=== PATIENT | male | born 1985 | race Two or more races ===

== ENCOUNTER 2020-02-22 11:30 | Emergency (ER) | payer BC ==
[2020-02-22] MEDS ORDERED: Sodium Chloride 0.9% 1,000 ML IV ONE (12:19)
[2020-02-22] MEDS ORDERED: Sodium Chloride 0.9% 10 ML Syringe FLUSH PRN (12:19)
[2020-02-22] MEDS ORDERED: Sodium Chloride 0.9% 2.5 ML Syringe FLUSH PRN (12:19)
[2020-02-22] MEDS ORDERED: Piperacillin/Tazobactam 4.5 GM in Sodium Chloride 0.9% 100 ML IV ONE ×2 (12:19→13:15)
[2020-02-22] MEDS ORDERED: Vancomycin/Water for INJ (PEG) 2 GM in Premix Bag 1 BAG IV ONE (12:45)
[2020-02-22 12:53] LABS: ACETAMINOPHEN <2.0 ug/mL; BLOOD UREA NITROGEN,BUN 51 mg/dL (7.0-18.0); CARBON DIOXIDE,CO2 20.6 mmol/L (21.0-32.0); CHLORIDE,CL 95 mmol/L (98-107); GLUCOSE RANDOM 131 mg/dL (74-106); LIPASE 80 U/L (73-393); POTASSIUM,K 3.3 mmol/L (3.5-5.1); SODIUM,NA 132 mmol/L (136-148)
[2020-02-22] MEDS ORDERED: Morphine 4 MG/ML Syringe IVPUSH ONE (13:12)
--- NOTE | 2020-02-22 13:12 | EDM.PDOC ---
ED HPI GENERAL MEDICAL PROBLEM - General Chief Complaint: General Stated Complaint: FEVER BODY ACHES STOMACH PAIN Time Seen by Provider: 02/22/20 11:55 - History of Present Illness INITIAL COMMENTS - FREE TEXT/NARRATIVE: CHIEF COMPLAINT(S): Abdominal pain HISTORY OF PRESENT ILLNESS: This is a 35-year-old man without any reported past medical history who comes to the emergency department with a chief complaint of abdominal pain. The patient states that for approximately 6 days now he has been experiencing abdominal pain which she describes as throughout his whole abdomen but worse on the right side. He denies any radiation of this pain. He rates his pain as 8 out of 10 and intermittent. He states that pressing the area causes it to worsen. He denies any exacerbation of pain with eating. He states that he has associated nausea and vomited once. He denies any hematemesis, bilious emesis, melena, hematochezia. He states that he is also been taking Tylenol and Aleve for pain and fever relief which has not helped the pain. He states that his T-max was 104.3. He states he is experiencing headache which is located bifrontal not associated with diplopia, numbness, tingling, or weakness in bilateral nasal congestion. Associated with the abdominal pain is also watery diarrhea and has had decreased urinary output. He states that he has not had any appetite and when he tries to eat he does throw up. He states that he did follow-up at his primary care office where they alea labs and was told that he was Covid negative, strep negative, flu negative but that he did have an increased white blood cell count so they started him on amoxicillin and clavulanic acid. He denies any recent travel and nobody in his family is having similar symptoms. He denies any history of hepatitis or excessive Tylenol use. 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 He states that no one else at work has the symptoms. That he knows of. Collateral information was obtained from patient's Mariluz. She states that on Saturday when the patient came home he stated that he was not feeling well. She states that at that time he had a fever of 103 and she was giving him Tylenol and ibuprofen. She states that the following day they took him to an outpatient clinic where he tested negative for Covid and had a blood draw. Approximately 4 days ago they called and told him that he had a blood infection and gave him a prescription for antibiotics. She states that approximately 2 days ago she wanted him to come to the emergency department for evaluation however he wanted to try going through the weekend. She states that he was not eating but was tolerating water and Gatorade. She states that he did have an intermittent cough, body aches, throat pain. She states that this morning when she woke up she noticed that he did not look well and told him that he needed to come to the emergency department. She states that he did does not do any illicit substances and does not drink excessive alcohol. REVIEW OF SYSTEMS: Constitutional: Positive for fever Eyes: Denies eye pain Ears, Nose, Mouth, & Throat: Positive for nasal congestion denies earache Cardiovascular: Denies chest pain Respiratory: Denies shortness of breath Gastrointestinal: Positive for right-sided abdominal pain, nausea, vomiting, diarrhea. Denies hematochezia, melena, hematemesis, bilious emesis Genitourinary: Positive for decreased urinary output. Denies hematuria Skin:Denies a rash Neurological: Positive for headache. Denies blurred vision, numbness, tingling, weakness Psychiatric: Denies depression PAST MEDICAL HISTORY: As per history of present illness and as reviewed below otherwise noncontributory. SURGICAL HISTORY: As per history of present illness and as reviewed below otherwise noncontributory. SOCIAL HISTORY: As per history of present illness and as reviewed below otherwise noncontributory. FAMILY HISTORY: As per history of present illness and as reviewed below otherwise noncontributory. EXAMINATION OF ORGAN SYSTEMS/BODY AREAS: Constitutional: Blood pressure was 92/46, heart rate 110, respiratory rate 20 with an oxygen saturation of 100% on room air. Temperature 37.2 General: Young man who does not appear to be in acute distress Psychiatric: Appropriate mood and affect. Eyes: Bilateral scleral icterus is present. No conjunctival erythema. ENMT: Dry mucous membranes. No pharyngeal erythema. Mild nasal drainage. Cardiovascular: Tachycardic but regular no gallops, murmurs, or rubs. Bilateral upper extremity pulses symmetric and intact. No peripheral edema. No JVD. Respiratory: Lungs clear to auscultation bilaterally. No wheezes, rales, or rhonchi. Gastrointestinal: Soft, diffusely tender however worse in the right upper and ri ght lower quadrant. Mild distention. Negative tympany. No rebound or guarding. Normoactive bowel sounds Genitourinary: No suprapubic tenderness Musculoskeletal: Normal range of motion. Skin: Mildly jaundiced Neurological: Alert, GCS 15 MEDICAL DECISION MAKING AND COURSE IN THE ED WITH INTERPRETATION/REVIEW OF DIAGNOSTIC STUDIES: This is a 35-year-old man without any reported past medical history who comes to the emergency department with abdominal pain on the right side of his abdomen who is hypotensive and tachycardic. He is also jaundiced with some scleral icterus. At this time differential includes cholecystitis, choledocholithiasis, ascending cholangitis versus other etiology of the liver. Will obtain a septic work-up including CBC, CMP, lactic acid, blood cultures, urine, chest x-ray, hepatitis panel, coags, and right upper quadrant ultrasound and CT abdomen pelvis with contrast. We will provide the patient with the equivalent of 30 cc/kg of normal saline. We will start the patient on Zosyn and vancomycin. Also provide the patient with morphine for pain relief. Twelve-lead EKG interpreted by myself. Sinus tachycardia at a rate of 101 beats per minute. Normal axis. SD interval is 163 ms. QRS duration is [address] segments are normal without elevations or depressions. No Q waves present. Hypertrophy not noted. No prior EKGs in our system. Interpretation: Sinus tachycardia Laboratory: CBC reveals a leukocytosis of 19 with neutrophilic predominance and segmented neutrophils. There is severe lymphopenia with 0.4 lymphocytes. Coags are within normal limits. Lactic acid was 2.8, repeat was 1.9. CMP reveals anion gap metabolic acidosis with a bicarbonate of 20.6. Hypokalemia at 3.3. Hyponatremia at 132. He has acute renal failure with a BUN of 51 and a creatinine of 4.4. He also has acute hyperbilirubinemia with a total bilirubin of 7 and a direct bilirubin of 5.3. AST is mildly elevated at 43 and alkaline phosphatase also elevated at 155. CRP is elevated greater than 20. Hypophosphatemia at 2.1 and hyperglycemia at 131. There is hypoalbuminemia with a protein of 2.2. Tylenol and alcohol levels are negative. HIV is negative. I nfluenza AB and coronavirus are negative. Urinalysis was a clean catch and was trace for leukocyte esterase, positive for nitrites, and small for blood. Interpretation: Positive The radiological images were viewed by myself along with reading the report from the radiologist. Chest x-ray does not reveal any acute cardiopulmonary process. Ultrasound of the abdomen reveals gallbladder wall thickening and mild sonographic Kraft sign but no calculus or pericholecystic fluid. There is also a gallbladder polyp and probable hepatic steatosis. CT abdomen pelvis without contrast reveals enlarged liver with evidence of steatosis. No focal mass or biliary ductal dilation. There appears to be layering of sludge within the gallbladder. No wall thickening, pericholecystic fluid or surrounding inflammatory change. Otherwise it is negative. After initial fluid resuscitation and antibiotic administration, the patient continued to remain hypotensive. Therefore I did discuss with patient I like to place a Joseph catheter and a central venous catheter in order to start pressors. We did obtain written consent. Central Line Procedure The risks and benefits of the procedure were explained. Consent was obtained and in chart. The indication for central line placement was vasopressor support. The patient was monitored during the entire procedure. Time out was performed. The patient's left neck was prepped and draped in a sterile fashion. Lidocaine was used to anesthetize the area. A needle was entered into the left internal jugular vein under ultrasound guidance with return of non-pulsatile flow. Guidewire was placed and triple lumen catheter was placed via Seldinger technique. Guidewire was removed. All 3 lines easily withdrew blood and were flushed with sterile saline. A Biopatch was placed and the line was secured. Patient tolerated procedure well. No complications. Joseph catheter was placed with approximately 10 cc of concentrated urine. Given the body aches, diarrhea, and findings we did send off a legionnaire antigen which is not yet back. I did contact [facility] in [place] and spoke with Dr. Fantasma Hay who accepted the patient for transfer. The patient will be transferred via fixed wing. While awaiting post central line chest x-ray reading the patient's blood pressure normalized. Therefore we did not start the patient on vasopressor support. The radiological images were viewed by myself along with reading the report from the radiologist. Chest x-ray reveals a left internal jugular central line that courses inferiorly along the left aspect of the mediastinum terminating over the left heart. 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 Otherwise no acute cardiopulmonary findings. At the time of transfer, hepatitis panel and Legionella urine antigen were pending. I did contact the patient's to inform her of the patient's condition at the request of the patient. Patient's 's name is Mariluz and I contacted her at [phone] DISPOSITION: The patient was transferred to [facility] and stable yet serious condition CONDITION: Serious PROCEDURES: EKG interpretation, cardiac monitoring interpretation, pulse oximetry interpretation FINAL IMPRESSION(S)/DIAGNOSES: 1. Acute sepsis secondary to cystitis versus intra-abdominal infection 2. Acute renal failure 3. Acute hyperbilirubinemia with suggestion of liver failure 4. Acute anion gap acidosis secondary to lactic acidosis 5. Acute thrombocytopenia 6. Acute hypoalbuminemia Critical Care Procedure Note Authorized and performed by: Adam Cyr M.D. Critical Care Time: 74 minutes Due to a high probability of clinically significant, life threatening deterioration, the patient required my highest level of preparedness to intervene emergently and I personally spent this critical care time directly and personally managing the patient. This critical care time included obtaining a history, examining the patient, pulse oximetry; ordering and review of studies; arranging urgent treatment with development of a management plan; evaluation of a patients response to treatment; frequent assessment; and discussions with other providers. This critical care time was performed to assess and manage the high probability of imminent, life threatening deterioration that could result in multiorgan failure. It was exclusive of separate billable procedures and treating other patients. Please see MDM section and rest of the note for further information on patient assessment and treatment. Please see MDM section and rest of the note for further information on patient assessment and treatment. Adam Cyr M.D. general Pain Score (Numeric/FACES): 9 - Related Data Allergies Allergy/AdvReac Type Severity Reaction Status Date / Time No Known Allergies Allergy Verified 02/22/20 12:02 Home Meds: Home Meds . [No Known Home Meds] 02/22/20 [History] ED ROS GENERAL - Review of Systems Review Of Systems: See Below ED EXAM, GENERAL - Physical Exam Exam: See Below Course - Vital Signs Last Recorded V/S: Last Vital Signs Temp 37.2 C 02/22/20 11:46 Pulse 98 02/22/20 14:38 Resp 20 02/22/20 14:38 BP 79/40 L 02/22/20 14:38 Pulse Ox 95 02/22/20 14:38 - Orders/Labs/Meds Orders: Active Orders 24 hr Category Date Time Status Blood Pressure Mgt: Sepsis [RC] [id number] Care 02/22/20 12:20 Active Cardiac Monitoring [RC] CONTINUOUS Care 02/22/20 12:20 Active Joseph Catheter Insertion [Insert Urinary Catheter] [OM. Care 02/22/20 15:00 Ordered PC] Q24H Overnight Pulse Oximetry [RC] Click to Edit Care 02/22/20 12:21 Active Urinary Catheter Assessment [RC] ASDIRECTED Care 02/22/20 14:51 Active CULTURE BLOOD [BC] Stat Lab 02/22/20 11:57 Received CULTURE BLOOD [BC] Stat Lab 02/22/20 12:40 Received HEPATITIS PANEL (4) [REF] Stat Lab 02/22/20 13:20 Received LEGIONELLA ANTIGEN [MREF] Stat Lab 02/22/20 16:10 Received Norepinephrine Bit/0.9 % NaCl [Norepinephr-0.9% NaCl 4 Med 02/22/20 15:00 Active mg/250] 4 mg in 250 ml IV TITRATE Pharmacy to Dose - Vancomycin Med 02/22/20 12:30 Active 1 dose .XX ASDIRECTED Sodium Chloride 0.9% [Saline Flush] Med 02/22/20 12:19 Active 10 ml FLUSH ASDIRECTED PRN Sodium Chloride 0.9% [Saline Flush] Med 02/22/20 12:19 Active 2.5 ml FLUSH ASDIRECTED PRN Blood Culture x2 Reflex Set [OM.PC] Stat Oth 02/22/20 12:19 Ordered Pulse Oximetry Continuous Monitoring [OM.PC] Routine Oth 02/22/20 12:19 Ordered Saline Lock Insert [OM.PC] Stat Oth 02/22/20 12:19 Ordered Severe Sepsis Onset Time [OM.PC] Stat Oth 02/22/20 12:19 Ordered Medication Orders Norepinephrine Bitartrate (Norepinephr-0.9% Nacl 4 Mg/250) 4 mg in 250 mls @ 7.5 mls/hr IV TITRATE JULIANA; Protocol Sodium Chloride (Saline Flush) 10 ml FLUSH ASDIRECTED PRN PRN Reason: Keep Vein Open Last Admin: 02/22/20 12:37 Dose: 10 ml Documented by: [id number] Sodium Chloride (Saline Flush) 2.5 ml FLUSH ASDIRECTED PRN PRN Reason: Keep Vein Open Last Admin: 02/22/20 12:37 Dose: 2.5 ml Documented by: [id number] Vancomycin HCl (Pharmacy To Dose - Vancomycin) 1 dose .XX ASDIRECTED JULIANA Labs: Laboratory Tests 02/22/20 02/22/20 02/22/20 Range/Units 11:55 11:55 11:55 WBC (4.0-11.0) K/uL RBC (4.50-5.90) M/uL Hgb (13.0-17.0) g/dL Hct (38.0-50.0) % MCV (80.0-98.0) fL MCH (27.0-32.0) pg MCHC (31.0-37.0) g/dL RDW Std Deviation (28.0-62.0) fl RDW Coeff of Eros (11.0-15.0) % Plt Count (150-400) K/uL Add Manual Diff Neutrophils % (Manual) (48.0-80.0) % Lymphocytes % (Manual) (16.0-40.0) % Monocytes % (Manual) (0.0-15.0) % Eosinophils % (Manual) (0.0-7.0) % Nucleated RBC % /100WBC Absolute Seg Neuts (1.4-5.7) Lymphocytes # (Manual) (0.6-2.4) Monocytes # (Manual) (0.0-0.8) Eosinophils # (Manual) (0.0-0.7) Nucleated RBCs # K/uL INR 1.00 Lactate (0.20-2.00) mmol/L Sodium 132 L (136-148) mmol/L Potassium 3.3 L (3.5-5.1) mmol/L Chloride 95 L (98-107) mmol/L Carbon Dioxide 20.6 L (21.0-32.0) mmol/L BUN 51 H (7.0-18.0) mg/dL Creatinine 4.4 H (0.8-1.3) mg/dL Est Cr Clr Drug Dosing 20.19 mL/min Estimated GFR (MDRD) 15.3 ml/min Glucose 131 H (74-106) mg/dL Calcium 8.3 L (8.5-10.1) mg/dL Phosphorus (2.6-4.7) mg/dL Total Bilirubin 7.0 H 5.9 H (0.2-1.0) mg/dL Direct Bilirubin 5.30 H (0.0-0.5) mg/dL Indirect Bilirubin 0.60 AST 43 H (15-37) IU/L ALT 57 (14-63) IU/L Alkaline Phosphatase 155 H (46-116) U/L Creatine Kinase (26-308) U/L C-Reactive Protein (0.00-0.90) mg/dL Total Protein 6.6 (6.4-8.2) g/dL Albumin 2.2 L (3.4-5.0) g/dL Globulin 4.4 H (2.6-4.0) g/dL Albumin/Globulin Ratio 0.5 L (0.9-1.6) Lipase 80 (73-393) U/L Urine Color Urine Appearance Urine pH (5.0-8.0) Ur Specific Kendall (1.001-1.035) Urine Protein (NEGATIVE) mg/dL Urine Glucose (UA) (NEGATIVE) mg/dL Urine Ketones (NEGATIVE) mg/dL Urine Occult Blood (NEGATIVE) Urine Nitrite (NEGATIVE) Urine Bilirubin (NEGATIVE) Urine Ictotest Urine Urobilinogen (<2.0) EU/dL Ur Leukocyte Esterase (NEGATIVE) Urine RBC (0-2/HPF) Urine WBC (0-5/HPF) Ur Epithelial Cells (NONE-FEW) Amorphous Sediment (NEGATIVE) Urine Bacteria (NEGATIVE) Urine Mucus (NONE-MOD) Acetaminophen <2.0 ug/mL Ethyl Alcohol mg/dL HIV 1&2 Ag/Ab, 4th Gen (<1.0) INDEX Influenza Type A RNA (NEGATIVE) Influenza Type B RNA (NEGATIVE) SARS-CoV-2 RNA (BRO) (NEGATIVE) 02/22/20 02/22/20 02/22/20 Range/Units 11:55 11:55 11:55 WBC (4.0-11.0) K/uL RBC (4.50-5.90) M/uL Hgb (13.0-17.0) g/dL Hct (38.0-50.0) % MCV (80.0-98.0) fL MCH (27.0-32.0) pg MCHC (31.0-37.0) g/dL RDW Std Deviation (28.0-62.0) fl RDW Coeff of Eros (11.0-15.0) % Plt Count (150-400) K/uL Add Manual Diff Neutrophils % (Manual) (48.0-80.0) % Lymphocytes % (Manual) (16.0-40.0) % Monocytes % (Manual) (0.0-15.0) % Eosinophils % (Manual) (0.0-7.0) % Nucleated RBC % /100WBC Absolute Seg Neuts (1.4-5.7) Lymphocytes # (Manual) (0.6-2.4) Monocytes # (Manual) (0.0-0.8) Eosinophils # (Manual) (0.0-0.7) Nucleated RBCs # K/uL INR Lactate 2.8 H* (0.20-2.00) mmol/L Sodium (136-148) mmol/L Potassium (3.5-5.1) mmol/L Chloride (98-107) mmol/L Carbon Dioxide (21.0-32.0) mmol/L BUN (7.0-18.0) mg/dL Creatinine (0.8-1.3) mg/dL Est Cr Clr Drug Dosing mL/min Estimated GFR (MDRD) ml/min Glucose (74-106) mg/dL Calcium (8.5-10.1) mg/dL Phosphorus 2.1 L (2.6-4.7) mg/dL Total Bilirubin (0.2-1.0) mg/dL Direct Bilirubin (0.0-0.5) mg/dL Indirect Bilirubin AST (15-37) IU/L ALT (14-63) IU/L Alkaline Phosphatase (46-116) U/L Creatine Kinase 27 (26-308) U/L C-Reactive Protein > 20.00 H (0.00-0.90) mg/dL Total Protein (6.4-8.2) g/dL Albumin (3.4-5.0) g/dL Globulin (2.6-4.0) g/dL Albumin/Globulin Ratio (0.9-1.6) Lipase (73-393) U/L Urine Color Urine Appearance Urine pH (5.0-8.0) Ur Specific Kendall (1.001-1.035) Urine Protein (NEGATIVE) mg/dL Urine Glucose (UA) (NEGATIVE) mg/dL Urine Ketones (NEGATIVE) mg/dL Urine Occult Blood (NEGATIVE) Urine Nitrite (NEGATIVE) Urine Bilirubin (NEGATIVE) Urine Ictotest Urine Urobilinogen (<2.0) EU/dL Ur Leukocyte Esterase (NEGATIVE) Urine RBC (0-2/HPF) Urine WBC (0-5/HPF) Ur Epithelial Cells (NONE-FEW) Amorphous Sediment (NEGATIVE) Urine Bacteria (NEGATIVE) Urine Mucus (NONE-MOD) Acetaminophen ug/mL Ethyl Alcohol mg/dL HIV 1&2 Ag/Ab, 4th Gen < 0.1 (<1.0) INDEX Influenza Type A RNA (NEGATIVE) Influenza Type B RNA (NEGATIVE) SARS-CoV-2 RNA (BRO) (NEGATIVE) 02/22/20 02/22/20 02/22/20 Range/Units 12:30 13:20 13:20 WBC 19.02 H (4.0-11.0) K/uL RBC 4.39 L (4.50-5.90) M/uL Hgb 13.5 (13.0-17.0) g/dL Hct 37.3 L (38.0-50.0) % MCV 85.0 (80.0-98.0) fL MCH 30.8 (27.0-32.0) pg MCHC 36.2 (31.0-37.0) g/dL RDW Std Deviation 39.6 (28.0-62.0) fl RDW Coeff of Eros 13 (11.0-15.0) % Plt Count 55 L (150-400) K/uL Add Manual Diff YES Neutrophils % (Manual) 94 H (48.0-80.0) % Lymphocytes % (Manual) 2 L (16.0-40.0) % Monocytes % (Manual) 2 (0.0-15.0) % Eosinophils % (Manual) 2 (0.0-7.0) % Nucleated RBC % 0.0 /100WBC Absolute Seg Neuts 17.9 H (1.4-5.7) Lymphocytes # (Manual) 0.4 L (0.6-2.4) Monocytes # (Manual) 0.4 (0.0-0.8) Eosinophils # (Manual) 0.4 (0.0-0.7) Nucleated RBCs # 0 K/uL INR Lactate 1.9 (0.20-2.00) mmol/L Sodium (136-148) mmol/L Potassium (3.5-5.1) mmol/L Chloride (98-107) mmol/L Carbon Dioxide (21.0-32.0) mmol/L BUN (7.0-18.0) mg/dL Creatinine (0.8-1.3) mg/dL Est Cr Clr Drug Dosing mL/min Estimated GFR (MDRD) ml/min Glucose (74-106) mg/dL Calcium (8.5-10.1) mg/dL Phosphorus (2.6-4.7) mg/dL Total Bilirubin (0.2-1.0) mg/dL Direct Bilirubin (0.0-0.5) mg/dL Indirect Bilirubin AST (15-37) IU/L ALT (14-63) IU/L Alkaline Phosphatase (46-116) U/L Creatine Kinase (26-308) U/L C-Reactive Protein (0.00-0.90) mg/dL Total Protein (6.4-8.2) g/dL Albumin (3.4-5.0) g/dL Globulin (2.6-4.0) g/dL Albumin/Globulin Ratio (0.9-1.6) Lipase (73-393) U/L Urine Color Urine Appearance Urine pH (5.0-8.0) Ur Specific Kendall (1.001-1.035) Urine Protein (NEGATIVE) mg/dL Urine Glucose (UA) (NEGATIVE) mg/dL Urine Ketones (NEGATIVE) mg/dL Urine Occult Blood (NEGATIVE) Urine Nitrite (NEGATIVE) Urine Bilirubin (NEGATIVE) Urine Ictotest Urine Urobilinogen (<2.0) EU/dL Ur Leukocyte Esterase (NEGATIVE) Urine RBC (0-2/HPF) Urine WBC (0-5/HPF) Ur Epithelial Cells (NONE-FEW) Amorphous Sediment (NEGATIVE) Urine Bacteria (NEGATIVE) Urine Mucus (NONE-MOD) Acetaminophen ug/mL Ethyl Alcohol mg/dL HIV 1&2 Ag/Ab, 4th Gen (<1.0) INDEX Influenza Type A RNA NEGATIVE (NEGATIVE) Influenza Type B RNA NEGATIVE (NEGATIVE) SARS-CoV-2 RNA (BRO) NEGATIVE (NEGATIVE) 02/22/20 02/22/20 Range/Units 13:20 16:10 WBC (4.0-11.0) K/uL RBC (4.50-5.90) M/uL Hgb (13.0-17.0) g/dL Hct (38.0-50.0) % MCV (80.0-98.0) fL MCH (27.0-32.0) pg MCHC (31.0-37.0) g/dL RDW Std Deviation (28.0-62.0) fl RDW Coeff of Eros (11.0-15.0) % Plt Count (150-400) K/uL Add Manual Diff Neutrophils % (Manual) (48.0-80.0) % Lymphocytes % (Manual) (16.0-40.0) % Monocytes % (Manual) (0.0-15.0) % Eosinophils % (Manual) (0.0-7.0) % Nucleated RBC % /100WBC Absolute Seg Neuts (1.4-5.7) Lymphocytes # (Manual) (0.6-2.4) Monocytes # (Manual) (0.0-0.8) Eosinophils # (Manual) (0.0-0.7) Nucleated RBCs # K/uL INR Lactate (0.20-2.00) mmol/L Sodium (136-148) mmol/L Potassium (3.5-5.1) mmol/L Chloride (98-107) mmol/L Carbon Dioxide (21.0-32.0) mmol/L BUN (7.0-18.0) mg/dL Creatinine (0.8-1.3) mg/dL Est Cr Clr Drug Dosing mL/min Estimated GFR (MDRD) ml/min Glucose (74-106) mg/dL Calcium (8.5-10.1) mg/dL Phosphorus (2.6-4.7) mg/dL Total Bilirubin (0.2-1.0) mg/dL Direct Bilirubin (0.0-0.5) mg/dL Indirect Bilirubin AST (15-37) IU/L ALT (14-63) IU/L Alkaline Phosphatase (46-116) U/L Creatine Kinase (26-308) U/L C-Reactive Protein (0.00-0.90) mg/dL Total Protein (6.4-8.2) g/dL Albumin (3.4-5.0) g/dL Globulin (2.6-4.0) g/dL Albumin/Globulin Ratio (0.9-1.6) Lipase (73-393) U/L Urine Color YELLOW Urine Appearance CLEAR Urine pH 5.0 (5.0-8.0) Ur Specific Kendall 1.025 (1.001-1.035) Urine Protein 100 H (NEGATIVE) mg/dL Urine Glucose (UA) NEGATIVE (NEGATIVE) mg/dL Urine Ketones TRACE H (NEGATIVE) mg/dL Urine Occult Blood SMALL H (NEGATIVE) Urine Nitrite POSITIVE H (NEGATIVE) Urine Bilirubin LARGE H (NEGATIVE) Urine Ictotest POSITIVE Urine Urobilinogen 1.0 (<2.0) EU/dL Ur Leukocyte Esterase TRACE H (NEGATIVE) Urine RBC 1-2 (0-2/HPF) Urine WBC 8-10 (0-5/HPF) Ur Epithelial Cells RARE (NONE-FEW) Amorphous Sediment MODERATE (NEGATIVE) Urine Bacteria 1+ H (NEGATIVE) Urine Mucus FEW (NONE-MOD) Acetaminophen ug/mL Ethyl Alcohol < 3.0 mg/dL HIV 1&2 Ag/Ab, 4th Gen (<1.0) INDEX Influenza Type A RNA (NEGATIVE) Influenza Type B RNA (NEGATIVE) SARS-CoV-2 RNA (BRO) (NEGATIVE) Meds: Medications Generic Name Dose Route Start Last Admin Trade Name Freq PRN Reason Stop Dose Admin Norepinephrine Bitartrate 4 mg in 250 mls @ 7.5 mls/hr 02/22/20 15:00 Norepinephr-0.9% Nacl 4 Mg/250 IV TITRATE JULIANA Protocol 2 MCG/MIN Sodium Chloride 10 ml 02/22/20 12:19 02/22/20 12:37 Saline Flush FLUSH 10 ml ASDIRECTED PRN Administration Keep Vein Open Sodium Chloride 2.5 ml 02/22/20 12:19 02/22/20 12:37 Saline Flush FLUSH 2.5 ml ASDIRECTED PRN Administration Keep Vein Open Vancomycin HCl 1 dose 02/22/20 12:30 Pharmacy To Dose - Vancomycin .XX ASDIRECTED JULIANA Discontinued Medications Generic Name Dose Route Start Last Admin Trade Name Freq PRN Reason Stop Dose Admin Piperacillin Sod/Tazobactam 100 mls @ 200 mls/hr 02/22/20 12:19 02/22/20 14:00 Sod 4.5 gm/ Sodium Chloride IV 02/22/20 12:48 Not Given STAT ONE Sodium Chloride 1,000 mls @ 3,000 mls/hr 02/22/20 12:19 02/22/20 12:36 Normal Saline IV 02/22/20 12:38 3,000 mls/hr BOLUS ONE Administration Protocol Vancomycin HCl 2 gm/ Premix 400 mls @ 200 mls/hr 02/22/20 12:45 02/22/20 13:25 IV 02/22/20 14:44 200 mls/hr ONETIME ONE Administration Piperacillin Sod/Tazobactam 100 mls @ 200 mls/hr 02/22/20 13:15 02/22/20 13:25 Sod 4.5 gm/ Sodium Chloride IV 02/22/20 13:44 200 mls/hr STAT ONE Administration Morphine Sulfate 4 mg 02/22/20 13:12 02/22/20 13:25 Morphine IVPUSH 02/22/20 13:13 4 mg ONETIME ONE Administration Departure - Departure Time of Disposition: 14:29 Disposition: DC/[facility]fer to [facility] 02 Condition: Serious Clinical Impression: Sepsis Qualifiers: Sepsis type: sepsis due to unspecified organism Sepsis acute organ dysfunction status: with acute organ dysfunction Severe sepsis acute organ dysfunction type: acute renal failure Acute renal failure type: unspecified Severe sepsis shock status: without septic shock Qualified Code(s): A41.9 - Sepsis, unspecified organism; R65.20 - Severe sepsis without septic shock; N17.9 - Acute kidney failure, unspecified Liver failure Qualifiers: Liver failure chronicity: acute Hepatic coma status: without hepatic coma Qualified Code(s): K72.00 - Acute and subacute hepatic failure without coma Renal failure Qualifiers: Renal failure chronicity: acute Acute renal failure type: unspecified Qualified Code(s): N17.9 - Acute kidney failure, unspecified - Discharge Information *PRESCRIPTION DRUG MONITORING PROGRAM REVIEWED*: No *COPY OF PRESCRIPTION DRUG MONITORING REPORT IN PATIENT NAVIN: No Referrals: PCP,Not In Area [Primary Care Provider] - Forms: ED Department Discharge Sepsis Event Note (ED) - Evaluation Sepsis Screening Result: Possible Severe Sepsis Risk - Focused Exam Vital Signs: Vital Signs Temp Pulse Resp BP Pulse Ox 02/22/20 14:38 98 20 79/40 L 95 02/22/20 14:07 99 18 83/45 L 99 02/22/20 13:26 102 H 16 83/59 L 96 02/22/20 13:02 83/50 L 02/22/20 12:50 96 20 96 02/22/20 12:20 79/50 L 02/22/20 11:46 37.2 C 110 H 20 92/46 L 100 - My Orders Last 24 Hours: My Active Orders 02/22/20 11:57 CULTURE BLOOD [BC] Stat 02/22/20 12:19 Sodium Chloride 0.9% [Saline Flush] 10 ml FLUSH ASDIRECTED PRN Sodium Chloride 0.9% [Saline Flush] 2.5 ml FLUSH ASDIRECTED PRN Blood Culture x2 Reflex Set [OM.PC] Stat Pulse Oximetry Continuous Monitoring [OM.PC] Routine Saline Lock Insert [OM.PC] Stat Severe Sepsis Onset Time [OM.PC] Stat 02/22/20 12:20 Blood Pressure Mgt: Sepsis [RC] Q15MX2 Cardiac Monitoring [RC] CONTINUOUS 02/22/20 12:21 Overnight Pulse Oximetry [RC] Click to Edit 02/22/20 12:30 Pharmacy to Dose - Vancomycin 1 dose .XX ASDIRECTED 02/22/20 12:40 CULTURE BLOOD [BC] Stat 02/22/20 13:20 HEPATITIS PANEL (4) [REF] Stat 02/22/20 14:51 Urinary Catheter Assessment [RC] ASDIRECTED 02/22/20 15:00 Joseph Catheter Insertion [Insert Urinary Catheter] [OM.PC] Q24H Norepinephrine Bit/0.9 % NaCl [Norepinephr-0.9% NaCl 4 mg/250] 4 mg in 250 ml IV TITRATE 02/22/20 16:10 LEGIONELLA ANTIGEN [MREF] Stat - Assessment/Plan Last 24 Hours: My Active Orders 02/22/20 11:57 CULTURE BLOOD [BC] Stat 02/22/20 12:19 Sodium Chloride 0.9% [Saline Flush] 10 ml FLUSH ASDIRECTED PRN Sodium Chloride 0.9% [Saline Flush] 2.5 ml FLUSH ASDIRECTED PRN Blood Culture x2 Reflex Set [OM.PC] Stat Pulse Oximetry Continuous Monitoring [OM.PC] Routine Saline Lock Insert [OM.PC] Stat Severe Sepsis Onset Time [OM.PC] Stat 02/22/20 12:20 Blood Pressure Mgt: Sepsis [RC] Q15MX2 Cardiac Monitoring [RC] CONTINUOUS 02/22/20 12:21 Overnight Pulse Oximetry [RC] Click to Edit 02/22/20 12:30 Pharmacy to Dose - Vancomycin 1 dose .XX ASDIRECTED 02/22/20 12:40 CULTURE BLOOD [BC] Stat 02/22/20 13:20 HEPATITIS PANEL (4) [REF] Stat 02/22/20 14:51 Urinary Catheter Assessment [RC] ASDIRECTED 02/22/20 15:00 Joseph Catheter Insertion [Insert Urinary Catheter] [OM.PC] Q24H Norepinephrine Bit/0.9 % NaCl [Norepinephr-0.9% NaCl 4 mg/250] 4 mg in 250 ml IV TITRATE 02/22/20 16:10 LEGIONELLA ANTIGEN [MREF] Stat
[2020-02-22 13:18] LABS: CORONAVIRUS COVID-19 NAA NEGATIVE (NEGATIVE); INFLUENZA A NAA NEGATIVE (NEGATIVE); INFLUENZA B NAA NEGATIVE (NEGATIVE)
--- NOTE | 2020-02-22 14:17 | US ---
Indication: Right upper quadrant pain. Assess for cholelithiasis parent Technique: Sonography of the abdomen was performed limited to the structures discussed below. Comparison: None Findings: The liver measures 19.2 centimeters in the midclavicular line. Echogenicity is slightly increased with increased sound through transmission probably related to fatty infiltration. There is mild gallbladder wall thickening at 4.3 millimeters. There is no pericholecystic fluid. There is a weak positive sonographic Kraft`s sign. There is sludge within the gallbladder and a polyp measuring up to about 7 millimeters. The common duct is of normal caliber 4.2 millimeters. No stones are identified within the gallbladder or ductal system. The right kidney is unremarkable. The IVC is patent. The aorta as visualized appears normal. Impression: 1. There is gallbladder wall thickening and a mild sonographic Kraft sign but no calculus or pericholecystic fluid collection. No visible calculus and no biliary ductal dilatation. While the findings are abnormal, they do not constitute acute cholecystitis by ultrasound criteria. 2. Gallbladder wall polyp measuring up to about 7 millimeters. Polyps of this size generally require careful serial follow-up. The risk of malignancy increases most dramatically and about 10 millimeters. 3. Probable hepatic steatosis Dictated by Richi Alvarenga MD @ Feb 22 2020 2:09PM Signed by Dr. Richi Alvarenga @ Feb 22 2020 2:16PM
[2020-02-22 14:23] LABS: BILIRUBIN INDIRECT 0.6
--- NOTE | 2020-02-22 14:25 | CR ---
INDICATION: Shortness of breath. FINDINGS: A single portable chest x-ray shows a normal cardiac silhouette. The lungs show no focal pulmonary opacities. Sharp pleural margins. No pneumothorax. IMPRESSION: No evidence of acute pulmonary abnormalities. Dictated by Abhishek Boucher MD @ Feb 22 2020 2:22PM Signed by Dr. Abhishek Boucher @ Feb 22 2020 2:24PM
--- NOTE | 2020-02-22 14:59 | CT ---
INDICATION: Pain. Jaundice. Abnormal renal function COMPARISON: No prior CTs TECHNIQUE: CT examination of the abdomen and pelvis was performed without intravenous contrast. Thin section axial images were obtained from the lung bases through the pubic symphysis. Oral contrast was not administered. Please note that all CT scans at this facility use dose modulation, iterative reconstruction, and/or weight-based dosing when appropriate to reduce radiation dose to as low as reasonably achievable. FINDINGS: LUNG BASES: The lung bases as visualized appear normal.The heart size is normal at the lung bases. LIVER/BILIARY SYSTEM:The liver is enlarged. There are findings of hepatic steatosis. There is no visible focal mass on this noncontrast study there is no biliary ductal dilatation. Findings suggest sludge within the gallbladder. The wall thickening and polyps discussed in the ultrasound report are not directly visible on this exam. No visible pericholecystic fluid or inflammatory change about the gallbladder by CT ADRENALS: Normal non-contrast appearance KIDNEYS, URETERS and BLADDER:The kidneys appear normal given lack of intravenous contrast. No visible mass, calculus or hydronephrosis. The ureters and bladder as visualized appear normal. SPLEEN:Normal non-contrast appearance. PANCREAS: Normal non-contrast appearance. RETROPERITONEUM and MESENTERY: There is no mass, adenopathy or aortic aneurysm. GASTROINTESTINAL SYSTEM: There is no evidence of diverticulitis, colitis, mechanical obstruction, or appendicitis. The small bowel as visualized appears normal.Diverticulosis PELVIS: No mass, adenopathy or free fluid. 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 OTHER: No free fluid or free air. IMPRESSION: 1. Enlarged liver with evidence of steatosis. No focal mass or biliary ductal dilatation. 2. There appears to be layering sludge within the gallbladder. I see no wall thickening, pericholecystic fluid or surrounding inflammatory change by CT criteria. The polyp noted on the ultrasound is not visible by CT. 3. The examination the abdomen pelvis by CT is otherwise unremarkable. Please note that all CT scans at this facility use dose modulation, iterative reconstruction, and/or weight-based dosing when appropriate to reduce radiation dose to as low as reasonably achievable. Dictated by Richi Alvarenga MD @ Feb 22 2020 2:52PM Signed by Dr. Richi Alvarenga @ Feb 22 2020 2:58PM
--- NOTE | 2020-02-22 17:09 | CR ---
Indication: Central line placement Technique: Chest 1 view Comparison: February 22, 2020 Findings/Impression: Cardiovascular and mediastinum: Left internal jugular central line courses inferiorly along the left aspect of the mediastinum terminating over the left heart. 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 Heart size and pulmonary vasculature are normal. Lungs and pleural space: Lungs are clear. No sign of infiltrate or mass. No sign of pleural effusion. No pneumothorax. Bones and soft tissues: No acute findings. Dictated by Obinna Chambers MD @ Feb 22 2020 5:03PM Signed by Dr. Obinna Chambers @ Feb 22 2020 5:09PM
== END 2020-02-22 16:00 ==
LOC: MW.ED 11:30
DX: A41.9 Sepsis, unspecified organism (principal); R65.20 Severe sepsis without septic shock; N17.9 Acute kidney failure, unspecified; K72.00 Acute and subacute hepatic failure without coma; Z20.828 Contact with and (suspected) exposure to other viral communicable diseases; E88.09 Other disorders of plasma-protein metabolism, not elsewhere classified; D69.6 Thrombocytopenia, unspecified; E87.2 Acidosis
CPT/HCPCS: 0240U; 36415; 36556; 51702; 71045; 74176; 76705; 80053; 80074; 80307; 81001; 82247; 82248; 82550; 83605; 83690; 84100; 85025; 85610; 86140; 87040; 87389; 87899; 93005; 96365; 96366; 96368; 96375; 99285; J2270; J2543; J3370; J7030; J7050; 99291

== ENCOUNTER 2020-03-21 08:31 | Day surgery (SDC) | payer BC ==
[~2020-03-21 08:31] MED LIST: Bupivacaine 0.5% 10 ML SDV ONE; Lactated Ringers 1,000 ML IV SCH; Midazolam 1 MG/ML 2 ML SDV ONE; Propofol 200 MG/20 ML SDV ONE; fentaNYL 100 MCG/2 ML SDV ONE
[2020-03-21] MEDS ORDERED: Lidocaine 1% 20 ML MDV ONE (08:42)
--- NOTE | 2020-03-21 09:07 | PCM.PREANE ---
Preanesthetic Assessment - Anesthesia/Transfusion/Family Hx Anesthesia History: Prior Anesthesia Without Reaction Family History of Anesthesia Reaction: No Transfusion History: No Prior Transfusion(s) Intubation History: Unknown - Review of Systems General: No Symptoms Pulmonary: No Symptoms Cardiovascular: No Symptoms Gastrointestinal: No Symptoms Neurological: No Symptoms Other: Reports: None - Physical Assessment Height: 5 ft 4 in Weight: 90.718 kg ASA Class: 2 Mental Status: Alert & Oriented x3 Airway Class: Mallampati = 2 Dentition: Reports: Normal Dentition, [place](s) (lower right (back)) Thyro-Mental Finger Breadths: 3 Mouth Opening Finger Breadths: 3 ROM/Head Extension: Full Lungs: Clear to Auscultation, Normal Respiratory Effort Cardiovascular: Regular Rate, Regular Rhythm - Lab Values: Laboratory Last Values SARS-CoV-2 RNA (BRO) NEGATIVE (NEGATIVE) 03/21/20 07:45 - Allergies Allergies/Adverse Reactions: Allergies Allergy/AdvReac Type Severity Reaction Status Date / Time amoxicillin Allergy Possible Verified 03/17/20 08:26 allergy, my kidneys to shut down - Blood Blood Available: No - Anesthesia Plan Pre-Op Medication Ordered: None - Acknowledgements Anesthesia Type Planned: MAC Pt an Appropriate Candidate for the Planned Anesthesia: Yes Alternatives and Risks of Anesthesia Discussed w Pt/Guardian: Yes Pt/Guardian Understands and Agrees with Anesthesia Plan: Yes PreAnesthesia Questionnaire - Past Health History Medical/Surgical History: Denies Medical/Surgical History HEENT History: Reports: None Cardiovascular History: Reports: None Respiratory History: Reports: None Gastrointestinal History: Reports: GERD Genitourinary History: Reports: Acute Renal Failure Other Genitourinary History: renal failure in mid February, diagnosed with hemolytic uremic syndrome, flown to [place] and was placed on dialysis x 3 days, has recovered to the point that he does not require dialysis Musculoskeletal History: Reports: None Neurological History: Reports: None Psychiatric History: Reports: None Endocrine/Metabolic History: Reports: None (34.3), Obesity/BMI 30+ Hematologic History: Reports: None Immunologic History: Reports: None Oncologic (Cancer) History: Reports: None Dermatologic History: Reports: None - Infectious Disease History Infectious Disease History: Reports: Chicken Pox - Past Surgical History Head Surgeries/Procedures: Reports: None HEENT Surgical History: Reports: None Cardiovascular Surgical History: Reports: None Respiratory Surgical History: Reports: None GI Surgical History: Reports: None Other Male Surgeries/Procedures: central line placement & removal, dialysis tunneled cath placement Endocrine Surgical History: Reports: None Neurological Surgical History: Reports: None Musculoskeletal Surgical History: Reports: None Oncologic Surgical History: Reports: None Dermatological Surgical History: Reports: None Other Surgical History Comment: dual lumen hemodyalysis cath placement a month ago for acure renal failure - SUBSTANCE USE Tobacco Use Status *Q: Former Tobacco User (quit a month ago) Tobacco Use Within Last Twelve Months: No - HOME MEDS Home Medications: Home Meds Famotidine [Pepcid] 20 mg PO DAILY 03/17/20 [History] Furosemide [Lasix] 20 mg PO DAILY PRN 03/17/20 [History] predniSONE 20 mg PO DAILY 03/17/20 [History] - CURRENT (IN HOUSE) MEDS Current Meds: Current Medications Lactated Ringer's (Ringers, Lactated) 1,000 mls @ 125 mls/hr IV ASDIRECTED JULIANA Discontinued Medications Bupivacaine HCl (Sensorcaine-Mpf 0.5%) Confirm Administered Dose 10 ml .ROUTE .STK-MED ONE Stop: 03/21/20 07:11 Fentanyl (Sublimaze) Confirm Administered Dose 100 mcg .ROUTE .STK-MED ONE Stop: 03/21/20 08:06 Acetaminophen (Ofirmev) Confirm Administered Dose 100 mls @ as directed .ROUTE .STK-MED ONE Stop: 03/21/20 07:11 Lidocaine HCl (Xylocaine-Mpf 1%) Confirm Administered Dose 5 ml .ROUTE .STK-MED ONE Stop: 03/21/20 08:07 Lidocaine HCl (Xylocaine 1%) Confirm Administered Dose 20 ml .ROUTE .STK-MED ONE Stop: 03/21/20 08:43 Midazolam HCl (Versed 1 Mg/Ml) Confirm Administered Dose 2 mg .ROUTE .STK-MED ONE Stop: 03/21/20 08:07 Propofol (Diprivan 20 Ml) Confirm Administered Dose 400 mg .ROUTE .STK-MED ONE Stop: 03/21/20 08:06
[2020-03-21] MEDS ORDERED: Propofol 200 MG/20 ML SDV ONE (09:29)
[2020-03-21] MEDS ORDERED: EPINEPHrine 1:10,000 1 MG/10 ML Syringe IVPUSH PRN (09:45)
[2020-03-21] MEDS ORDERED: Atropine 0.1 MG/ML 10 ML Syringe IVPUSH PRN ×2 (09:45)
[2020-03-21] MEDS ORDERED: fentaNYL 100 MCG/2 ML SDV IVPUSH PRN (09:45)
[2020-03-21] MEDS ORDERED: Naloxone 0.4 MG/ML Syringe IVPUSH PRN (09:45)
[2020-03-21] MEDS ORDERED: Albuterol 0.083% 2.5 MG/3 ML Neb Soln NEB PRN (09:45)
[2020-03-21] MEDS ORDERED: 50% Dextrose in Water 50 ML Syringe IVPUSH PRN (09:45)
--- NOTE | 2020-03-21 10:11 | PCM.POSTAN ---
POST ANESTHESIA ASSESSMENT - MENTAL STATUS Mental Status: Alert, Oriented - VITAL SIGNS Vital Signs: Last Vital Signs Temp 36.7 C 03/21/20 09:52 Pulse 71 03/21/20 10:03 Resp 13 03/21/20 10:03 BP 125/84 03/21/20 10:03 Pulse Ox 98 03/21/20 10:03 - RESPIRATORY Respiratory Status: Respiratory Rate WNL, Airway Patent, O2 Saturation Stable - CARDIOVASCULAR CV Status: Pulse Rate WNL, Blood Pressure Stable - GASTROINTESTINAL GI Status: No Symptoms - PAIN Pain Score: 0 - POST OP HYDRATION Hydration Status: Adequate & Stable - OBSERVATIONS Free Text/Narrative:: No anesthesia problems
--- NOTE | 2020-03-21 10:11 | PCM.OPNOTE ---
- General Post-Op/Procedure Note Date of Surgery/Procedure: 03/21/20 Operative Procedure(s): Removal of dual-lumen dialysis access catheter Pre Op Diagnosis: History of hemolytic uremic syndrome Post-Op Diagnosis: Same Anesthesia Technique: Local, MAC (ASA II) Primary Surgeon: Osvaldo Olivarez Fluid Replacement, Intraop: 450 EBL in mLs: 5 Condition: Good Free Text/Narrative:: Intake & Output 03/20/20 03/21/20 03/21/20 19:59 03:59 11:59 Intake Total 600 Balance 600 DICTATION 599215 CPT CODE 72208
[2020-03-21] MEDS ORDERED: Lactated Ringers 1,000 ML IV SCH (10:15)
--- NOTE | 2020-03-21 10:31 | PCM48HPAN ---
Post Anesthesia Note - EVALUATION WITHIN 48HRS OF ANESTHETIC Vital Signs in Normal Range: Yes Patient Participated in Evaluation: Yes Respiratory Function Stable: Yes Airway Patent: Yes Cardiovascular Function Stable: Yes Hydration Status Stable: Yes Pain Control Satisfactory: Yes Nausea and Vomiting Control Satisfactory: Yes Mental Status Recovered: Yes Vital Signs: Last Vital Signs Temp 36.7 C 03/21/20 09:52 Pulse 71 03/21/20 10:03 Resp 13 03/21/20 10:03 BP 125/84 03/21/20 10:03 Pulse Ox 98 03/21/20 10:03 - COMMENTS/OBSERVATIONS Free Text/Narrative:: No anesthesia problems
--- NOTE | 2020-03-21 13:20 | OR ---
SURGEON: Osvaldo Olivarez M.D. DATE OF PROCEDURE: 03/21/2020 OPERATION PERFORMED: Removal of dual lumen hemodialysis access catheter. PRIMARY SURGEON: Osvaldo Olivarez MD ANESTHESIA: Local MAC. ASA CLASSIFICATION: II. PREOPERATIVE DIAGNOSES: 1. History of hemolytic uremic syndrome with temporary dialysis. 2. Need for dialysis catheter removal. POSTOPERATIVE DIAGNOSES: 1. History of hemolytic uremic syndrome with temporary dialysis. 2. Need for dialysis catheter removal. ESTIMATED BLOOD LOSS: 5 mL. INTRAOPERATIVE FLUID REPLACEMENT: 450 mL of crystalloid. DESCRIPTION OF PROCEDURE: The patient was taken to the operating room and placed on the operating table in the supine position. Surgical site had been marked prior to the patient entering the operating room. Monitored anesthesia care was provided. The chest was prepped with Betadine solution. Sterile drapes were applied. Gentle traction was placed on the catheter to identify the Dacron cuff site. Once that was identified, the overlying skin was infiltrated with 4 mL of 1% plain Xylocaine and 3 mL of 0.5% Marcaine solution. Skin incision was made and deepened through the subcutaneous tissue obtaining hemostasis with the use of electrocautery. Dissection was carried down to the Dacron cuff, which was circumferentially dissected free. The catheter was then clamped and cut for removal of the catheter in 2 pieces. The catheter was easily removed from the right internal jugular site. Pressure was held for a total of 3 minutes, and there was no bleeding. The wound was inspected for hemostasis, and small bleeding sites were electrocoagulated. The incision was then closed in 2 layers approximating the subcutaneous tissue with 3-0 Vicryl and the skin with subcuticular 4-0 Monocryl. The incision was then Steri-Stripped with half-inch Steri-Strips and dressed with a sterile Tegaderm pad. Sponge, needle, and instrument counts were all correct. The patient was taken to recovery room in stable condition. IONA / GRANTL /[id number]
== END 2020-03-21 10:30 | disposition home or self-care (01) ==
LOC: MW.SDS 08:31
PROVIDERS: ATTEND Surgery
DX: Z49.01 Encounter for fitting and adjustment of extracorporeal dialysis catheter (principal); E66.9 Obesity, unspecified; N17.9 Acute kidney failure, unspecified; Z01.812 Encounter for preprocedural laboratory examination; Z20.822 Contact with and (suspected) exposure to COVID-19; Z88.1 Allergy status to other antibiotic agents; Z87.448 Personal history of other diseases of urinary system; Z87.891 Personal history of nicotine dependence; Z68.34 Body mass index [BMI] 34.0-34.9, adult
CPT/HCPCS: 36589; 87635; J0131; J2001; J2250; J2704; J3490; J7120; 00300; J3010; U0002

== ENCOUNTER 2021-06-13 20:51 | Emergency (ER) | payer SELFPAY ==
[2021-06-13] MEDS ORDERED: Sodium Chloride 0.9% 2.5 ML Syringe FLUSH PRN (21:02)
[2021-06-13] MEDS ORDERED: Sodium Chloride 0.9% 10 ML Syringe FLUSH PRN (21:02)
[2021-06-13] MEDS ORDERED: Sodium Chloride 0.9% 1,000 ML IV ONE ×2 (21:02→23:06)
[2021-06-13 22:40] LABS: BLOOD UREA NITROGEN,BUN 11 mg/dL (7.0-18.0); CARBON DIOXIDE,CO2 27.1 mmol/L (21.0-32.0); CHLORIDE,CL 93 mmol/L (98-107); GLUCOSE RANDOM 205 mg/dL (74-106); LIPASE 100 U/L (73-393); POTASSIUM,K 4.2 mmol/L (3.5-5.1); SODIUM,NA 131 mmol/L (136-148)
== END 2021-06-14 00:20 | disposition home or self-care (01) ==
LOC: MW.ED 20:51 → MERGE 20:51 → MW.ED 06-14 00:20
DX: M62.82 Rhabdomyolysis (principal); E86.0 Dehydration; Z88.0 Allergy status to penicillin
CPT/HCPCS: 36415; 80053; 81001; 82550; 83036; 83690; 83735; 85025; 99284; J3490; J7030; 99283

== ENCOUNTER 2021-06-16 17:25 | Observation (INO) | payer SELFPAY ==
[2021-06-16] MEDS ORDERED: Sodium Chloride 0.9% 1,000 ML IV ONE (19:00)
[2021-06-16 19:32] LABS: BLOOD UREA NITROGEN,BUN 13 mg/dL (7.0-18.0); CARBON DIOXIDE,CO2 26.6 mmol/L (21.0-32.0); CHLORIDE,CL 99 mmol/L (98-107); GLUCOSE RANDOM 250 mg/dL (74-106); POTASSIUM,K 3.9 mmol/L (3.5-5.1); SODIUM,NA 134 mmol/L (136-148)
[2021-06-16] MEDS ORDERED: Acetaminophen 500 MG Tab PO PRN (22:03)
[2021-06-16] MEDS ORDERED: Morphine 2 MG/ML SYRINGE IVPUSH PRN (22:04)
[2021-06-16] MEDS ORDERED: Enoxaparin 40 MG/0.4 ML Syringe SUBCUT SCH (22:15)
[2021-06-16] MEDS: Lactated Ringers 1,000 ML IV SCH (22:29)
[2021-06-16] MEDS ORDERED: 50% Dextrose in Water 50 ML Syringe IVPUSH PRN (22:41)
[2021-06-16] MEDS ORDERED: Glucagon,Human Recombinant 1 MG Vial IM PRN (22:41)
[2021-06-17] MEDS: Lactated Ringers 1,000 ML IV SCH ×2 (03:39→08:49)
[2021-06-17 07:36] LABS: BLOOD UREA NITROGEN,BUN 15 mg/dL (7.0-18.0); CARBON DIOXIDE,CO2 23.6 mmol/L (21.0-32.0); CHLORIDE,CL 99 mmol/L (98-107); GLUCOSE RANDOM 262 mg/dL (74-106); POTASSIUM,K 3.9 mmol/L (3.5-5.1); SODIUM,NA 133 mmol/L (136-148)
[2021-06-17] MEDS: Insulin Aspart 100 Units/ML 3 ML Pen SUBCUT SCH ×2 (09:05→12:24)
[2021-06-17] MEDS ORDERED: Lactated Ringers 1,000 ML IV ONE (13:17)
== END 2021-06-17 15:50 | disposition home or self-care (01) ==
LOC: MW.ED 17:25 → MW.MS 19:57
PROVIDERS: ADMIT Student in an Organized Health Care Education/Training Program; ATTEND Student in an Organized Health Care Education/Training Program
DX: M62.82 Rhabdomyolysis (principal); E11.9 Type 2 diabetes mellitus without complications; K21.9 Gastro-esophageal reflux disease without esophagitis; N19 Unspecified kidney failure; Z88.1 Allergy status to other antibiotic agents; Z20.822 Contact with and (suspected) exposure to COVID-19
CPT/HCPCS: 36415; 80053; 81003; 82009; 82550; 82947; 83605; 85025; 87635; 96372; 99284; G0378; J1650; J1815; J7030; J7120; 99234; U0002